=== PATIENT | male | born 1965 | race Caucasian/White ===

== ENCOUNTER 2017-07-01 09:01 | Emergency (ER) | payer OTHER ==
[~2017-07-01] VITALS: Ht 182.9 cm; Wt 115.4 kg
[~2017-07-01 09:01] MED LIST: LISI40TA PO
[2017-07-01 09:10] VITALS: Ht 182.9 cm; Wt 115.4 kg
[2017-07-01] MEDS ORDERED: CZR50 PO (09:29)
[2017-07-01] MEDS ORDERED: AMLO-114 PO (09:29)
[2017-07-01] MEDS ORDERED: ACETAMINOPHEN 500 MG TAB PO STA (09:30)
[2017-07-01] MEDS ORDERED: XYLOCAINE 1%/SOD BICARB 20 ML VIAL INFIL ONE (09:45)
--- NOTE | 2017-07-01 10:09 | DIAGNOSTIC IMAGING REPORT ---
THORACIC SPINE 3 VIEWS CLINICAL HISTORY: Fall with thoracic back pain. FINDINGS: AP, lateral, and swimmer's views of the thoracic spine are compared to study dated 01/26/2012. The skeletal structures appear well mineralized. There is no radiographic evidence of fracture or malalignment involving the thoracic spine. Anterior osteophytes are seen throughout. The transverse processes and pedicles are grossly intact as seen on the frontal view. The visualized posterior ribs appear maintained. The disc spaces appear preserved. The visualized lung parenchyma is grossly clear. IMPRESSION: There is no radiographic evidence of fracture or malalignment involving the thoracic spine. Electronically signed by: Edgar Song M.D. 07/01/2017 10:08 AM Dictated Date/Time: 07/01/2017 10:07 AM
--- NOTE | 2017-07-01 10:15 | DIAGNOSTIC IMAGING REPORT ---
L-SPINE MIN 4 VIEWS ROUTINE HISTORY: Trauma. Pain. Back pain s/p fall off of ladder COMPARISON: None. FINDINGS: There is no fracture. No subluxation. Mild degenerative disc change IMPRESSION: No acute process. Mild degenerative change. The above report was generated using voice recognition software. It may contain grammatical, syntax or spelling errors. Electronically signed by: Vic Dai M.D. 07/01/2017 10:14 AM Dictated Date/Time: 07/01/2017 10:13 AM
[2017-07-01] MEDS ORDERED: OXYC1TAB3 PO (10:39)
[2017-07-01 11:05] VITALS: BP 123/82; PULSE 75; TEMP 36.9; O2SAT 98
--- NOTE | 2017-07-01 15:05 | EMERGENCY ROOM VISIT NOTE ---
History First contact with patient: 09:14 Chief Complaint: BACK PAIN Stated Complaint: CUT ON L HAND,BACK PAIN WC History of Present Illness The patient is a 52 year old male who presents to the Emergency Room with complaints of injuries after slipping and falling from a ladder this morning at work. The patient reports that he was breaking down a heat pump and carrying it down the ladder when his foot slipped and he fell approximately 45 feet onto the ground. He is uncertain how he cut his right hand, and complains of generalized middle and lower back pain. He reports a history of degenerative disc disease in the lumbar spine. He denies any rib pain, shortness of breath, chest pain, head injury or neck pain. He rates his discomfort a 6 out of 10. Review of Systems HEENT: Denies dizziness, visual problems, hearing loss, tinnitus. Denies difficulty swallowing or oral lesions. PULMONARY: Denies cough, shortness of breath, sputum production or hemoptysis. CARDIOVASCULAR: Denies chest pain, palpitations, dyspnea on exertion, orthopnea or peripheral edema. GASTROINTESTINAL: Denies diarrhea, constipation, nausea, vomiting, or abdominal pain. GENITOURINARY: Denies dysuria, frequency, urgency or nocturia. NEUROLOGIC: Denies history of epilepsy, CVA, TIA or chronic headaches. MUSCULOSKELETAL: Denies history of joint tenderness/swelling. SKIN: Denies rashes or lesions. PSYCHIATRIC: Denies history of depression or mental illness. ENDOCRINE: Denies history of diabetes or thyroid disorders. Past Medical/Surgical History Medical Problems: (1) Gout (2) Hypertension (3) No significant past medical history Surgical Problems: (1) No history of previous surgery Family History Unremarkable Social History Smoking Status: Never Smoker Alcohol Use: occasionally Marital Status: Housing Status: lives with family Occupation Status: employed Current/Historical Medications Scheduled Allopurinol (Zyloprim), 300 MG PO DAILY Amlodipine (Norvasc), 10 MG PO DAILY Losartan Potassium (Losartan Potassium), 50 MG PO DAILY Scheduled PRN Oxycodone Ir (Roxicodone Ir), 1-2 TAB PO Q4H PRN for Pain Physical Exam Vital Signs Date Time Temp Pulse Resp B/P (MAP) Pulse Ox O2 Delivery O2 Flow Rate FiO2 07/01/17 11:05 36.9 75 16 123/82 98 07/01/17 09:10 36.9 75 16 137/92 96 Room Air Physical Exam CONSTITUTIONAL: Healthy and well nourished. Alert and oriented X 3 with positive affect. Patient does not appear in any acute distress. GCS 15. HEENT: Normocephalic, atraumatic. Pupils equal, round and reactive. No epistaxis, subconjunctival hemorrhage, hemotympanum, raccoon's eyes or salcido sign. NECK: Full active range of motion without discomfort. RESPIRATORY: Clear to auscultation bilaterally with no wheezing, crackles, rhonchi or stridor. CARDIOVASCULAR: Regular rate and rhythm with no murmurs, rubs or gallops. GASTROINTESTINAL: Bowel sounds present in all quadrants. Soft and nontender to palpation. MUSCULOSKELETAL: Examination shows mild tenderness to palpation through the central thoracic and lower lumbar spine. No palpable paraspinous rigidity noted. No focal tenderness through the posterior or lateral ribs, although he does have some abrasions mostly on the left. Examination of the left hand shows a 3 cm curvilinear laceration over the base of the thumb and thenar eminence. No active bleeding noted. Patient is able to flex and extend the thumb against resistance with full strength. Capillary refill is less than 2 seconds. The patient otherwise does not have any tenderness to palpation of the phalanges, metacarpals or wrist region. Negative anatomic snuffbox tenderness. Distal pulses of the upper and lower extremities are intact. INTEGUMENTARY: No rash or other significant dermatologic conditions noted. NEUROLOGIC: No focal neurologic deficits noted. Medical Decision & Procedures ER Provider Diagnostic Interpretation: My interpretation of thoracolumbar x-rays does not show any acute fractures. Radiologist reports were reviewed with concurrence. Medications Administered Medications (Trade) Dose Ordered Sig/Milka Route Start Time Stop Time Status Last Admin Dose Admin Acetaminophen (Tylenol Tab) 1,000 mg NOW STAT PO 07/01/17 09:30 07/01/17 09:32 DC 07/01/17 09:40 1,000 MG Procedure Left hand laceration repair was performed under local anesthesia after receiving verbal consent from the patient. Using buffered 1% lidocaine without epinephrine, good local anesthesia was administered. The wound was then peripherally cleansed with iodine, then the wound was irrigated with 100 cc of normal saline. Sterile field was created. Exploration of the wound does not show any underlying debris or foreign bodies. The wound was then approximated using 4-0 nylon simple interrupted sutures. A bacitracin dressing was applied. The patient tolerated the procedure well without any significant bleeding. ED Course Patient history and physical exam were performed. Nurse's notes were reviewed. Vital signs were reviewed and and were grossly normal. The patient was administered Tylenol at his request. X-rays of the thoracolumbar spine were normal. Left hand laceration repair was performed under local anesthesia. The patient was encouraged to intermittently apply ice to areas of discomfort. Specific verbal and written wound care instructions were provided for his laceration. Suture removal in 12-14 days, or return sooner with any signs of infection. The patient was encouraged to take Tylenol as needed for pain. He was provided a prescription for OxyIR 5 mg should he need something for breakthrough pain. He was instructed to follow-up with his Worker's Compensation physician as needed with any persistent back pain or other difficulty performing his job duties. The patient was happy with plan of care, voiced understanding of all discharge instructions, and rated his discomfort a 4 out of 10 at the conclusion of my exam. Medical Decision [place] Drug Monitoring Program Search Results: patient reviewed within database, no issues identified Medication Reconcilliation Current Medication List: was personally reviewed by me Blood Pressure Screening Patient's blood pressure: Normal blood pressure Impression Primary Impression: Laceration of left hand Additional Impressions: Fall from ladder Lumbar contusion Work related injury Contusion of back wall of thorax Departure Information Dispostion Home / Self-Care Condition GOOD Prescriptions Oxycodone Ir (Roxicodone Ir) 5 Mg Tab 1-2 TAB PO Q4H Y for Pain, #15 TAB For Initial Treatment Prov: Wilmer Dickey PA 07/01/17 Forms HOME CARE DOCUMENTATION FORM, IMPORTANT VISIT INFORMATION Patient Instructions [facility] Additional Instructions Keep wound clean and dry. Do not allow any crusting or dried blood to accumulate on sutures. If this occurs, use a 1:1 solution of hydrogen peroxide/ water on a Q-tip to clean the wound. Use an antibiotic ointment for 3-4 days, then let wound dry. Suture removal in 12-14 days. Return sooner for any signs of infection (increasing redness, swelling, drainage). Intermittently apply ice to back. No heavy lifting or sitting for long periods of time. Tylenol 1000 mg every 6 hrs. OxyIR as needed for worse pain. Do not drink or drive while taking OxyIR. FOR WORK: Limited use of left hand until sutures are removed. No lifting greater than 20 pounds for the next 5 days secondary to back injury. Follow-up with your Worker's Compensation doctor as needed with any persistent back pain. Problem Qualifiers Primary Impression: Laceration of left hand Encounter type: initial encounter Foreign body presence: without foreign body Qualified Codes: S61.412A - Laceration without foreign body of left hand , initial encounter Additional Impressions: Fall from ladder Encounter type: initial encounter Qualified Codes: W11.XXXA - Fall on and from ladder, initial encounter Lumbar contusion Encounter type: initial encounter Qualified Codes: S30.0XXA - Contusion of lower back and pelvis, initial encounter Contusion of back wall of thorax Encounter type: initial encounter Laterality: unspecified laterality Qualified Codes: S20.229A - Contusion of unspecified back wall of thorax, initial encounter
[2017-07-01] MEDS ORDERED: ALLO300T2 PO (15:13)
== END 2017-07-01 11:09 | disposition home or self-care (01) ==
LOC: C.EDB 09:03
DX: S61.412A Laceration without foreign body of left hand, initial encounter (principal); S30.0XXA Contusion of lower back and pelvis, initial encounter; S20.229A Contusion of unspecified back wall of thorax, initial encounter; W11.XXXA Fall on and from ladder, initial encounter; Y99.0 Civilian activity done for income or pay; M10.9 Gout, unspecified; I10 Essential (primary) hypertension